=== PATIENT | female | born 1995 | race African-American/Black ===

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

== ENCOUNTER 2017-05-02 01:22 | Emergency (ER) | payer OTHER ==
[~2017-05-02] VITALS: Ht 147.3 cm; Wt 54.0 kg
[2017-05-02 01:23] VITALS: BP 132/72
== END 2017-05-02 01:58 | disposition left against medical advice (07) ==
LOC: ER 01:22
DX: Z53.21 Procedure and treatment not carried out due to patient leaving prior to being seen by health care provider (principal)

== ENCOUNTER 2019-01-18 09:51 | Emergency (ER) | payer SELFPAY ==
[~2019-01-18] VITALS: Ht 152.4 cm; Wt 46.0 kg
[2019-01-18 10:16] VITALS: BP 110/81
[2019-01-20] MEDS ORDERED: P50 PO (08:10)
[2019-01-20] MEDS ORDERED: ALBU6.7H9 INH (08:10)
== END 2019-01-18 11:22 | disposition home or self-care (01) ==
LOC: ER 09:51
DX: S23.3XXA Sprain of ligaments of thoracic spine, initial encounter (principal); X58.XXXA Exposure to other specified factors, initial encounter; Y93.89 Activity, other specified; Y92.9 Unspecified place or not applicable
CPT/HCPCS: 81025; 99282

== ENCOUNTER 2019-01-18 20:37 | Inpatient (IN) | payer SELFPAY ==
[~2019-01-18] VITALS: Ht 149.9 cm; Wt 43.1 kg
[2019-01-18] MEDS ORDERED: ALBUTEROL (0.083%) 2.5MG/3ML NEB HHN STA (22:56)
[2019-01-19] MEDS ORDERED: ALBUTEROL (0.083%) 2.5MG/3ML NEB HHN ONE (00:15)
[2019-01-19] MEDS ORDERED: SODIUM CHLORIDE 0.9% 1,000 ML IV ONE ×2 (01:16→01:45)
[2019-01-19] MEDS ORDERED: ADENOSINE 3 MG/ML 2ML VIAL IV ONE ×3 (01:18→01:30)
[2019-01-19 01:44] LABS: BASOPHILS % 0.4 % (0.0-2.0); EOSINOPHILS % 2.3 % (0.0-5.0); HEMATOCRIT. 41.4 % (36.0-48.0); HEMOGLOBIN. 13.6 g/dL (12.0-16.0); LYMPHOCYTES % 9.7 % (20.0-50.0); MEAN CORPUSCULAR HEMOGLOBIN 28.5 pg (28.0-32.0); MEAN CORPUSCULAR VOLUME 86.6 fL (81.0-99.0); MEAN PLATELET VOLUME 8.8 fl (7.4-10.4); MONOCYTES % 3.7 % (2.0-8.0); NEUTROPHILS % 83.9 % (40.0-76.0); PLATELET 247 x1000/uL (130-400); RED BLOOD CELL COUNT 4.78 mill/uL (4.2-5.4); RED CELL DISTRIBUTION WIDTH 13.8 % (11.6-14.6)
[2019-01-19] MEDS ORDERED: ACETAMINOPHEN 325MG TABLET PO ONE (01:45)
[2019-01-19 01:54] LABS: CHLORIDE 110 mEq/L (98-107)
[2019-01-19] MEDS ORDERED: POTASSIUM CHLORIDE 20MEQ TABLET SR PO NR (02:15)
[2019-01-19] MEDS ORDERED: ONDANSETRON HCL 4MG/2ML INJ IV ONE (02:30)
[2019-01-19] MEDS ORDERED: LEVETIRACETAM 500MG PREMIX 100 ML IV NR (02:45)
[2019-01-19] MEDS ORDERED: DEXAMETHASONE 10 MG/ML VIAL IV NR (02:45)
[2019-01-19 03:11] LABS: CLARITY URINE CLEAR (CLEAR); COLOR URINE YELLOW (YELLOW); KETONES URINE 1+ (NEGATIVE); LEUKOCYTE ESTERASE URINE 1+ (NEGATIVE); NITRITE URINE NEGATIVE (NEGATIVE); OCCULT BLOOD URINE NEGATIVE (NEGATIVE); PH URINE 6.5 (4.5-8.0); PROTEIN URINE NEGATIVE (NEGATIVE); SPECIFIC GRAVITY URINE 1.018 (1.005-1.030); UROBILINOGEN URINE 0.2 E.U./dL (0.2-1.0)
[2019-01-19 03:39] LABS: *AMPHETAMINES SCREEN URINE NEGATIVE (NEGATIVE); *BARBITURATES SCREEN URINE NEGATIVE (NEGATIVE); *BENZODIAZEPINES SCREEN URINE NEGATIVE (NEGATIVE); *COCAINE SCREEN URINE NEGATIVE (NEGATIVE); METHADONE URINE SCREEN NEGATIVE (NEGATIVE); OPIATES URINE SCREEN NEGATIVE (NEGATIVE)
[2019-01-19 03:40] LABS: PHENCYCLIDINE URINE SCREEN NEGATIVE (NEGATIVE)
[2019-01-19 03:43] LABS: CANNABINOID URINE SCREEN PRESUMTIVE POSITIVE (NEGATIVE)
[2019-01-19] MEDS ORDERED: AZITHROMYCIN 500 MG in DEXT 5% WATER 250 ML IV SCH (04:00)
[2019-01-19] MEDS ORDERED: CEFTRIAXONE 1 G PREMIX 50 ML IV ONE (04:00)
[2019-01-19 08:30] VITALS: BP 112/65
[2019-01-19] MEDS ORDERED: ENOXAPARIN 40MG/0.4ML SYR SUBCUT SCH (09:00)
[2019-01-19] MEDS ORDERED: ACETAMINOPHEN 325MG TABLET PO PRN (11:45)
[2019-01-19] MEDS ORDERED: SODIUM CHLORIDE 0.9% 500 ML IV ONE ×2 (11:50→12:00)
[2019-01-19 12:00] VITALS: BP 121/67
[2019-01-19] MEDS: SODIUM CHLORIDE 0.45% 1,000 ML IV SCH (12:05)
[2019-01-19] MEDS: METHYLPREDNISOLONE SOD SUCC 40 MG/ML VIAL IV SCH ×2 (12:45→17:30)
[2019-01-19 13:19] LABS: HEMATOCRIT. 39.3 % (36.0-48.0); HEMOGLOBIN. 12.8 g/dL (12.0-16.0); MEAN CORPUSCULAR HEMOGLOBIN 28.1 pg (28.0-32.0); MEAN CORPUSCULAR VOLUME 86.2 fL (81.0-99.0); MEAN PLATELET VOLUME 8.5 fl (7.4-10.4); PLATELET 261 x1000/uL (130-400); RED BLOOD CELL COUNT 4.56 mill/uL (4.2-5.4); RED CELL DISTRIBUTION WIDTH 13.6 % (11.6-14.6)
[2019-01-19 13:34] LABS: CHLORIDE 113 mEq/L (98-107)
[2019-01-19 13:40] LABS: LDL CHOLESTEROL 93 mg/dL (5-100)
[2019-01-19 13:45] LABS: HDL CHOLESTEROL 78 mg/dL (40-59)
[2019-01-19 13:49] LABS: PLATELET ESTIMATE NORMAL
[2019-01-19 16:00] VITALS: BP 105/70
[2019-01-19] MEDS ORDERED: IPRATROPIUM BROMIDE (0.02%) 0.5MG/2.5ML NEB HHN PRN (16:00)
[2019-01-19] MEDS ORDERED: MONTELUKAST SODIUM 10MG TABLET PO SCH (17:00)
[2019-01-19] MEDS: AZITHROMYCIN 500 MG TABLET PO SCH (17:30)
[2019-01-19 20:29] VITALS: BP 117/79
[2019-01-19] MEDS: BUDESONIDE 0.5MG/2ML NEB HHN SCH (20:37)
[2019-01-19] MEDS: IPRATROPIUM BROMIDE (0.02%) 0.5MG/2.5ML NEB HHN SCH (20:37)
[2019-01-19] MEDS: FAMOTIDINE 20MG TABLET PO SCH (20:57)
[2019-01-20] VITALS: BP 102/67
[2019-01-20] MEDS: METHYLPREDNISOLONE SOD SUCC 40 MG/ML VIAL IV SCH ×2 (00:21→06:30)
[2019-01-20] MEDS: IPRATROPIUM BROMIDE (0.02%) 0.5MG/2.5ML NEB HHN SCH ×3 (00:24→09:40)
[2019-01-20 04:00] VITALS: BP 94/65
[2019-01-20] MEDS: SODIUM CHLORIDE 0.45% 1,000 ML IV SCH (06:30)
[2019-01-20 08:00] VITALS: BP 139/56
[2019-01-20] MEDS ORDERED: P50 PO (08:10)
[2019-01-20] MEDS ORDERED: ALBU6.7H9 INH (08:10)
[2019-01-20] MEDS ORDERED: LORATADINE 10MG TABLET PO SCH (09:00)
[2019-01-20] MEDS: FAMOTIDINE 20MG TABLET PO SCH (09:22)
[2019-01-20] MEDS: AZITHROMYCIN 500 MG TABLET PO SCH (09:22)
[2019-01-20] MEDS: BUDESONIDE 0.5MG/2ML NEB HHN SCH (09:40)
[2019-01-20 10:54] VITALS: BP 115/72
== END 2019-01-20 11:45 | disposition home or self-care (01) | DRG 133 ==
LOC: ER 20:37 → 6WST 01-19 03:51 → UNDOADMIN 01-19 03:51 → ENRESERV 01-19 07:01
PROVIDERS: ADMIT Family Medicine; ATTEND Family Medicine
DX: J96.00 Acute respiratory failure, unspecified whether with hypoxia or hypercapnia (principal); R65.10 Systemic inflammatory response syndrome (SIRS) of non-infectious origin without acute organ dysfunction; I47.1 Supraventricular tachycardia; J45.901 Unspecified asthma with (acute) exacerbation; F12.90 Cannabis use, unspecified, uncomplicated; Z79.899 Other long term (current) drug therapy; Z71.51 Drug abuse counseling and surveillance of drug abuser
CPT/HCPCS: 36415; 71045; 80048; 80061; 80305; 80307; 80329; 81003; 82550; 84443; 84484; 93005; 94640; 96365; 99291; J0153; J0456; J0696; J1100; J1650; J2405; J2920; J7030; J7040; J7060; J7611; J7626